=== PATIENT | female | born 1975 | race Caucasian/White ===

== ENCOUNTER 2019-02-19 10:11 | Inpatient (IN) ==
[2019-02-19] MEDS ORDERED: Isovue-370 500 ML BOTTLE IVP ONE (10:16)
[2019-02-19] MEDS ORDERED: Cefepime HCl 2,000 MG in Water for inj. (sterile) 20 ML IVP STA (10:18)
[2019-02-19] MEDS ORDERED: Ipratropium/Albuterol Neb 3 ML IH ONE (10:31)
[2019-02-19] MEDS ORDERED: methylPREDNISolone 125 MG/2 ML VIAL IVP ONE (10:31)
[2019-02-19 10:48] LABS: Hematocrit 31.2 % (35.3-44.9); Hemoglobin 10.5 g/dL (11.5-15.4); Mean Corpuscular HGB Conc 33.7 g/dL (31.6-35.5); Mean Platelet Volume 9.6 fL (9.4-12.4); Platelet Count 128 K/mcL (140-400); Red Blood Count 3.39 M/mcL (3.82-4.97); Red Cell Distribution Width 12.9 % (11.5-14.5); White Blood Count 4.9 K/mcL (4.3-11.1)
[2019-02-19 11:03] LABS: Prothrombin Time 11.4 Seconds (9.4-12.1)
[2019-02-19 11:06] LABS: Activated Partial Thrombo Time 31.4 Seconds (26.0-36.0)
[2019-02-19] MEDS: 0.9 % Sodium Chloride 1,000 ML IVC SCH ×2 (11:06→12:23)
[2019-02-19 11:07] LABS: Alanine Aminotransferase 23 Units/L (7-52); Albumin 4.2 g/dL (3.5-5.7); Albumin/Globulin Ratio 1.8 (1.1-2.2); Alkaline Phosphatase 124 Units/L (34-104); Aspartate Amino Transferase 21 Units/L (13-39); BUN/Creatinine Ratio 23 (6-26); Bilirubin,Direct 0.1 mg/dL (0.0-0.2); Bilirubin,Indirect 0.1 mg/dL (0.0-1.2); Bilirubin,Total 0.2 mg/dL (0.3-1.0); Blood Urea Nitrogen 17 mg/dL (6-20); Calcium 9.5 mg/dL (8.6-10.3); Carbon Dioxide 25 mEq/L (23-29); Chloride 105 mEq/L (98-107); Globulin 2.4 g/dL (2.4-3.5); Glucose 100 mg/dL (70-105); Lipase 15 Units/L (11-82); Magnesium 1.6 mg/dL (1.6-2.6); Osmolality,Calculated 288 (280-300); Phosphorous 4.2 mg/dL (2.7-4.5); Potassium 3.9 mEq/L (3.5-5.1); Sodium 138 mEq/L (136-145); Total Protein 6.6 g/dL (6.4-8.9); Troponin I 0.03 ng/mL (< 0.04); eGFR For African Americans > 60 (> 60); eGFR For Non-African Americans > 60 (> 60)
[2019-02-19] MEDS ORDERED: *HR* OxyCODONE/APAP 5/325 TABLET PO ONE ×2 (11:11→17:29)
[2019-02-19] MEDS ORDERED: Ondansetron 4 MG/2 ML VIAL IVP ONE (11:11)
[2019-02-19 11:35] LABS: Lymphocytes # 0.9 K/mcL (0.6-4.6); Monocytes # 0.2 K/mcL (0.0-1.3); Neutrophils # 3.8 K/mcL (1.6-8.9); Toxic Granulation Present (Not Present)
[2019-02-19 11:36] LABS: Dohle Bodies Present (Not Present); Platelet Estimate Slight Decrease (Normal)
[2019-02-19 11:39] LABS: Lactate Dehydrogenase 188 Units/L (140-271); Uric Acid 3.5 mg/dL (2.3-7.6)
[2019-02-19] MEDS ORDERED: *HR* HYDROmorphone (PF) 1 MG/ML SYRINGE IVP ONE (11:39)
[2019-02-19] MEDS ORDERED: Metoclopramide 10 MG/2 ML VIAL IVP ONE (12:26)
[2019-02-19 12:32] LABS: Bilirubin,Urine Negative (Negative); Blood,Urine Negative (Negative); Clarity,Urine Clear (Clear); Color,Urine Yellow (Yellow); Glucose,Urine (UA) Normal (Normal); Ketones,Urine Negative (Negative); Leukocyte Esterase,Urine Negative (Negative); Nitrite,Urine Negative (Negative); PH,Urine 6.5 pH Units (5.0-8.0); Protein,Urine Negative (Neg-Trace); Specific Gravity,Urine > 1.030 (1.010-1.025); Urobilinogen,Urine Normal (Normal)
[2019-02-19] MEDS ORDERED: Naloxone 0.4 MG/ML INJ IVP PRN (14:05)
[2019-02-19] MEDS ORDERED: Gadolinium Contrast Agent (WT Based) IV PRN (14:35)
[2019-02-19] MEDS: Ringers Solution, Lactated 1,000 ML IVC SCH (15:37)
[2019-02-19] MEDS: *HR* HYDROcodone/Acet 5/325 mg TABLET PO PRN ×2 (16:53→23:17)
[2019-02-19] MEDS: Cefepime HCl 1,000 MG in Water for inj. (sterile) 10 ML IVP SCH (16:54)
[2019-02-19 17:34] LABS: Troponin I 0.13 ng/mL (< 0.04)
[2019-02-19] MEDS: Ondansetron 4 MG/2 ML VIAL IVP PRN (21:24)
[2019-02-19] MEDS: hydrOXYzine pamoate 25 MG CAPSULE PO SCH (21:24)
[2019-02-20] MEDS ORDERED: Acetaminophen IV 500 MG/50 ML INFUS..BTL IVPB ONE ×2 (02:28→20:31)
[2019-02-20] MEDS: GuaiFENesin Liq 200 MG/10 ML UDC PO PRN ×2 (02:34→23:28)
[2019-02-20] MEDS: Ipratropium/Albuterol Neb 3 ML IH PRN ×2 (02:45→23:21)
[2019-02-20 03:47] LABS: Basophils % 0.4 %; Hematocrit 27.2 % (35.3-44.9); Hemoglobin 9.2 g/dL (11.5-15.4); Immature Granulocytes % 1.6 % (0-4); Lymphocytes # 0.6 K/mcL (0.6-4.6); Lymphocytes % 12.7 %; Mean Corpuscular HGB Conc 33.8 g/dL (31.6-35.5); Mean Corpuscular Hemoglobin 30.8 pg (28.0-33.3); Mean Platelet Volume 10.4 fL (9.4-12.4); Monocytes # 0.4 K/mcL (0.0-1.3); Monocytes % 7.3 %; Neutrophils # 3.9 K/mcL (1.6-8.9); Nucleated Red Blood Cells 0.4 /100 WBC (0); Platelet Count 107 K/mcL (140-400); Red Blood Count 2.99 M/mcL (3.82-4.97); Red Cell Distribution Width 12.9 % (11.5-14.5)
[2019-02-20 04:07] LABS: BUN/Creatinine Ratio 20 (6-26); Blood Urea Nitrogen 10 mg/dL (6-20); C-Reactive Protein < 5 mg/L (Less than 10); Calcium 8.8 mg/dL (8.6-10.3); Carbon Dioxide 24 mEq/L (23-29); Chloride 108 mEq/L (98-107); Glucose 97 mg/dL (70-105); Magnesium 1.6 mg/dL (1.6-2.6); Osmolality,Calculated 285 (280-300); Phosphorous 2.8 mg/dL (2.7-4.5); Potassium 3.9 mEq/L (3.5-5.1); Sodium 138 mEq/L (136-145); eGFR For African Americans > 60 (> 60); eGFR For Non-African Americans > 60 (> 60)
[2019-02-20] MEDS: Cefepime HCl 1,000 MG in Water for inj. (sterile) 10 ML IVP SCH (04:55)
[2019-02-20 05:04] LABS: Platelet Estimate Slight Decrease (Normal)
[2019-02-20] MEDS: Ringers Solution, Lactated 1,000 ML IVC SCH (06:19)
[2019-02-20] MEDS: predniSONE 20 MG TABLET PO SCH (07:20)
[2019-02-20] MEDS: *HR* HYDROcodone/Acet 5/325 mg TABLET PO PRN ×3 (07:20→19:34)
[2019-02-20] MEDS: Nicotine 14 MG PATCH.TD24 TD SCH (07:21)
[2019-02-20] MEDS ORDERED: 0.9 % Sodium Chloride 500 ML ONE ×2 (10:04→10:27)
[2019-02-20] MEDS ORDERED: *HR* Midazolam HCl 2 MG/2 ML VIAL IVP ONE (10:20)
[2019-02-20] MEDS ORDERED: *HR* FentaNYL (PF) 100 MCG/2 ML VIAL IVP ONE ×2 (10:20→10:39)
[2019-02-20] MEDS ORDERED: *HR* FentaNYL (PF) 100 MCG/2 ML VIAL ONE (10:27)
[2019-02-20] MEDS ORDERED: *HR* Midazolam HCl 2 MG/2 ML VIAL ONE (10:27)
[2019-02-20] MEDS: Ondansetron 4 MG/2 ML VIAL IVP PRN ×2 (11:30→20:57)
[2019-02-20] MEDS ORDERED: Magic Mouthwash 10 ML UD Cup PO PRN (11:54)
[2019-02-20] MEDS: *HR* Promethazine 25 MG/ML VIAL IVP PRN ×2 (14:11→23:29)
[2019-02-20 15:19] LABS: Adenovirus Not Detected (Not Detect); Bordetella Pertussis Not Detected (Not Detect); Chlamydophila pneumoniae Not Detected (Not Detect); Coronavirus 229E Not Detected (Not Detect); Coronavirus HKU1 Not Detected (Not Detect); Coronavirus NL63 Not Detected (Not Detect); Coronavirus OC43 Not Detected (Not Detect); Human Metapneumovirus Not Detected (Not Detect); Human Rhinovirus/Enterovirus DETECTED (Not Detect); Influenza A Subtype 2009 H1 Not Detected (Not Detect); Influenza A Untypeable Not Detected (Not Detect); Influenza B Not Detected (Not Detect); Mycoplasma pneumoniae Not Detected (Not Detect); Parainfluenza Virus 1 Not Detected (Not Detect); Parainfluenza Virus 2 Not Detected (Not Detect); Parainfluenza Virus 3 Not Detected (Not Detect); Parainfluenza Virus 4 Not Detected (Not Detect); Respiratory Syncytial Virus Not Detected (Not Detect)
[2019-02-20] MEDS: levoFLOXacin 750 MG/150 ML 750 MG/150 ML BAG IVPB SCH (16:07)
[2019-02-20] MEDS: hydrOXYzine pamoate 25 MG CAPSULE PO SCH (19:34)
[2019-02-21] MEDS: *HR* HYDROcodone/Acet 5/325 mg TABLET PO PRN (03:56)
[2019-02-21 04:39] LABS: Hematocrit 28.4 % (35.3-44.9); Hemoglobin 9.3 g/dL (11.5-15.4); Mean Corpuscular HGB Conc 32.7 g/dL (31.6-35.5); Mean Corpuscular Hemoglobin 30.8 pg (28.0-33.3); Mean Platelet Volume 10.8 fL (9.4-12.4); Platelet Count 127 K/mcL (140-400); Red Blood Count 3.02 M/mcL (3.82-4.97); Red Cell Distribution Width 12.9 % (11.5-14.5); White Blood Count 5.1 K/mcL (4.3-11.1)
[2019-02-21 04:56] LABS: BUN/Creatinine Ratio 20 (6-26); Blood Urea Nitrogen 11 mg/dL (6-20); Calcium 8.8 mg/dL (8.6-10.3); Carbon Dioxide 28 mEq/L (23-29); Chloride 107 mEq/L (98-107); Glucose 118 mg/dL (70-105); Magnesium 1.7 mg/dL (1.6-2.6); Osmolality,Calculated 292 (280-300); Phosphorous 3.2 mg/dL (2.7-4.5); Potassium 3.7 mEq/L (3.5-5.1); Sodium 141 mEq/L (136-145); eGFR For African Americans > 60 (> 60); eGFR For Non-African Americans > 60 (> 60)
[2019-02-21 06:05] LABS: Monocytes # 0.2 K/mcL (0.0-1.3); Neutrophils # 3.8 K/mcL (1.6-8.9)
[2019-02-21] MEDS: Ondansetron 4 MG/2 ML VIAL IVP PRN ×2 (09:02→17:16)
[2019-02-21] MEDS: predniSONE 20 MG TABLET PO SCH (09:15)
[2019-02-21] MEDS: Nicotine 14 MG PATCH.TD24 TD SCH (09:16)
[2019-02-21] MEDS: levoFLOXacin 750 MG/150 ML 750 MG/150 ML BAG IVPB SCH (09:17)
[2019-02-21] MEDS: *HR* OxyCODONE/APAP 5/325 TABLET PO PRN ×2 (10:00→23:00)
[2019-02-21] MEDS: *HR* Promethazine 25 MG/ML VIAL IVP PRN ×2 (11:36→23:00)
[2019-02-21] MEDS: *HR* Heparin 5,000 UNIT/ML VIAL SQ SCH ×2 (14:04→22:54)
[2019-02-21] MEDS ORDERED: Ketorolac 15 MG/ML VIAL IVP ONE (16:17)
[2019-02-21] MEDS: hydrOXYzine pamoate 25 MG CAPSULE PO SCH (22:55)
[2019-02-21] MEDS: Sennosides/Docusate Sodium TABLET PO SCH (22:56)
[2019-02-22] MEDS ORDERED: Acetaminophen IV 500 MG/50 ML INFUS..BTL IVPB ONE (01:59)
[2019-02-22] MEDS: *HR* Heparin 5,000 UNIT/ML VIAL SQ SCH ×3 (05:28→21:21)
[2019-02-22] MEDS: *HR* OxyCODONE/APAP 5/325 TABLET PO PRN ×2 (05:32→14:27)
[2019-02-22] MEDS ORDERED: Acetaminophen 325 MG TABLET PO ONE (09:50)
[2019-02-22] MEDS: Sennosides/Docusate Sodium TABLET PO SCH ×2 (09:52→21:21)
[2019-02-22] MEDS: predniSONE 20 MG TABLET PO SCH (09:53)
[2019-02-22] MEDS: *HR* Promethazine 25 MG/ML VIAL IVP PRN ×2 (09:54→21:22)
[2019-02-22] MEDS: Nicotine 14 MG PATCH.TD24 TD SCH (09:54)
[2019-02-22] MEDS: SUMAtriptan succinate 25 MG TABLET PO PRN ×3 (12:03→21:21)
[2019-02-22] MEDS: Ondansetron 4 MG/2 ML VIAL IVP PRN (14:35)
[2019-02-22] MEDS: hydrOXYzine pamoate 25 MG CAPSULE PO SCH (21:21)
[2019-02-23] MEDS: *HR* OxyCODONE/APAP 5/325 TABLET PO PRN (05:45)
[2019-02-23] MEDS: *HR* Heparin 5,000 UNIT/ML VIAL SQ SCH ×2 (05:46→12:40)
[2019-02-23 06:55] VITALS: BP 125/86
[2019-02-23] MEDS: Nicotine 14 MG PATCH.TD24 TD SCH (08:08)
[2019-02-23] MEDS: SUMAtriptan succinate 25 MG TABLET PO PRN ×2 (08:08→11:39)
[2019-02-23] MEDS: predniSONE 20 MG TABLET PO SCH (08:08)
[2019-02-23] MEDS: *HR* Promethazine 25 MG/ML VIAL IVP PRN (08:08)
[2019-02-23] MEDS: Sennosides/Docusate Sodium TABLET PO SCH (08:08)
[2019-02-23] MEDS ORDERED: Ondansetron ODT 4 MG TAB.RAPDIS SL PRN (09:20)
[2019-02-23] MEDS ORDERED: *HR* OxyCODONE/APAP 5/325 TABLET PO PRN (11:42)
[2019-02-23] MEDS ORDERED: Aminoglycoside Consult 1 EACH MC ONE (15:19)
== END 2019-02-23 15:20 | disposition home or self-care (01) | DRG 721 ==
LOC: 2NENU 10:11 → EMEROOARM 10:11 → 2NENU 14:09 → SUATTDRO 02-20 10:02
PROVIDERS: ADMIT Internal Medicine; ATTEND Internal Medicine

== ENCOUNTER 2019-03-07 12:29 | Inpatient (IN) ==
[2019-03-07] MEDS ORDERED: 0.9 % Sodium Chloride 1,000 ML IVC ONE (12:35)
[2019-03-07] MEDS ORDERED: *HR* HYDROmorphone (PF) 1 MG/ML SYRINGE IVP ONE (12:45)
[2019-03-07] MEDS ORDERED: Isovue-370 500 ML BOTTLE IVP ONE (12:58)
[2019-03-07 13:02] LABS: Basophils % 0.2 %; Red Cell Distribution Width 16.6 % (11.5-14.5)
[2019-03-07 13:04] LABS: Basophils # 0.1 K/mcL (0.0-0.2); Hemoglobin 11.9 g/dL (11.5-15.4); Immature Granulocytes % 8.5 % (0-4); Lymphocytes % 1.7 %; Mean Corpuscular HGB Conc 33.1 g/dL (31.6-35.5); Mean Corpuscular Hemoglobin 31.6 pg (28.0-33.3); Mean Corpuscular Volume 95.7 fL (83.0-100.0); Mean Platelet Volume 9.6 fL (9.4-12.4); Monocytes # 0.4 K/mcL (0.0-1.3); Monocytes % 0.8 %; Neutrophils # 44.5 K/mcL (1.6-8.9); Platelet Count 190 K/mcL (140-400); Red Blood Count 3.76 M/mcL (3.82-4.97); Segmented Neutrophils % 88.8 %
[2019-03-07 13:11] LABS: Lymphocytes # 0.9 K/mcL (0.6-4.6)
[2019-03-07 13:12] LABS: Prothrombin Time 11.7 Seconds (9.4-12.1)
[2019-03-07 13:14] LABS: White Blood Count 50.1 K/mcL (4.3-11.1)
[2019-03-07 13:15] LABS: Activated Partial Thrombo Time 29.7 Seconds (26.0-36.0)
[2019-03-07 13:22] LABS: Alanine Aminotransferase 24 Units/L (7-52); Albumin 4.5 g/dL (3.5-5.7); Albumin/Globulin Ratio 1.7 (1.1-2.2); Alkaline Phosphatase 92 Units/L (34-104); Aspartate Amino Transferase 14 Units/L (13-39); BUN/Creatinine Ratio 22 (6-26); Bilirubin,Direct 0.1 mg/dL (0.0-0.2); Bilirubin,Indirect 0.4 mg/dL (0.0-1.2); Bilirubin,Total 0.5 mg/dL (0.3-1.0); Blood Urea Nitrogen 11 mg/dL (6-20); Calcium 9.5 mg/dL (8.6-10.3); Carbon Dioxide 22 mEq/L (23-29); Chloride 107 mEq/L (98-107); Globulin 2.6 g/dL (2.4-3.5); Glucose 87 mg/dL (70-105); Magnesium 1.9 mg/dL (1.6-2.6); Osmolality,Calculated 287 (280-300); Phosphorous 3.6 mg/dL (2.7-4.5); Sodium 139 mEq/L (136-145); Total Protein 7.1 g/dL (6.4-8.9); Troponin I < 0.03 ng/mL (< 0.04); eGFR For African Americans > 60 (> 60); eGFR For Non-African Americans > 60 (> 60)
[2019-03-07] MEDS ORDERED: 0.9 % Sodium Chloride 1,000 ML IVC STA (13:23)
[2019-03-07 13:32] LABS: Bilirubin,Urine Negative (Negative); Blood,Urine Negative (Negative); Color,Urine Yellow (Yellow); Glucose,Urine (UA) Normal (Normal); Ketones,Urine 80 mg/dL (Negative); Leukocyte Esterase,Urine Negative (Negative); Nitrite,Urine Negative (Negative); Protein,Urine 100 mg/dL (Neg-Trace); Specific Gravity,Urine > 1.030 (1.010-1.025); Urobilinogen,Urine Normal (Normal)
[2019-03-07 13:34] LABS: Bacteria,Urine None Seen per hpf (None-Few); Hyaline Casts,Urine Few per lpf (None-Few); Squamous Epithelial Cell,Urine Many per lpf (None-Few); WBC,Urine 0-3 per hpf (0-3)
[2019-03-07] MEDS ORDERED: Ondansetron 4 MG/2 ML VIAL IVP STA (13:34)
[2019-03-07 13:38] LABS: Clarity,Urine Clear (Clear)
[2019-03-07 13:43] LABS: Platelet Estimate Normal (Normal); Reactive Lymphocytes Present (Not Present); Toxic Granulation Present (Not Present); Toxic Vacuolation Present (Not Present)
[2019-03-07] MEDS ORDERED: 0.9 % Sodium Chloride 250 ML ONE (13:46)
[2019-03-07] MEDS ORDERED: Cefepime HCl 2,000 MG in Water for inj. (sterile) 20 ML IVP ONE (14:45)
[2019-03-07] MEDS ORDERED: *HR* HYDROcodone/Acet 5/325 mg TABLET PO PRN (16:23)
[2019-03-07] MEDS ORDERED: Ondansetron 4 MG/2 ML VIAL IVP PRN (16:23)
[2019-03-07] MEDS ORDERED: Naloxone 0.4 MG/ML INJ IVP PRN (16:23)
[2019-03-07] MEDS ORDERED: Acetaminophen 325 MG TABLET PO PRN (16:23)
[2019-03-07] MEDS ORDERED: *HR* FentaNYL (PF) 100 MCG/2 ML VIAL IVP ONE (16:24)
[2019-03-07] MEDS: *HR* OxyCODONE Immed Rel 5 MG TABLET PO PRN (20:03)
[2019-03-07] MEDS: *HR* Heparin 5,000 UNIT/ML VIAL SQ SCH (22:20)
[2019-03-07] MEDS: Nicotine 21 MG PATCH.TD24 TD SCH (22:20)
[2019-03-08] MEDS: *HR* Promethazine 25 MG/ML VIAL IVP PRN ×4 (00:26→19:58)
[2019-03-08] MEDS: *HR* Heparin 5,000 UNIT/ML VIAL SQ SCH ×3 (02:25→16:53)
[2019-03-08 05:02] LABS: Mean Corpuscular HGB Conc 33.3 g/dL (31.6-35.5); Mean Platelet Volume 9.8 fL (9.4-12.4)
[2019-03-08 05:04] LABS: Hematocrit 31.2 % (35.3-44.9); Hemoglobin 10.4 g/dL (11.5-15.4); Mean Corpuscular Hemoglobin 32.3 pg (28.0-33.3); Mean Corpuscular Volume 96.9 fL (83.0-100.0); Platelet Count 163 K/mcL (140-400); Red Blood Count 3.22 M/mcL (3.82-4.97); Red Cell Distribution Width 16.3 % (11.5-14.5)
[2019-03-08 05:08] LABS: White Blood Count 33.2 K/mcL (4.3-11.1)
[2019-03-08 05:09] LABS: INR 1.1
[2019-03-08 05:20] LABS: BUN/Creatinine Ratio 18 (6-26); Blood Urea Nitrogen 8 mg/dL (6-20); Calcium 8.8 mg/dL (8.6-10.3); Carbon Dioxide 25 mEq/L (23-29); Chloride 106 mEq/L (98-107); Glucose 83 mg/dL (70-105); Magnesium 1.8 mg/dL (1.6-2.6); Osmolality,Calculated 285 (280-300); Potassium 3.6 mEq/L (3.5-5.1); Sodium 139 mEq/L (136-145); eGFR For African Americans > 60 (> 60); eGFR For Non-African Americans > 60 (> 60)
[2019-03-08] MEDS ORDERED: Cefepime HCl 2,000 MG in Water for inj. (sterile) 20 ML IVP SCH (06:00)
[2019-03-08 06:36] LABS: Monocytes # 0.3 K/mcL (0.0-1.3); Neutrophils # 31.9 K/mcL (1.6-8.9); Platelet Estimate Normal (Normal); Toxic Vacuolation Present (Not Present)
[2019-03-08] MEDS: Nicotine 21 MG PATCH.TD24 TD SCH (09:30)
[2019-03-08] MEDS: *HR* OxyCODONE Immed Rel 5 MG TABLET PO PRN ×3 (09:35→23:06)
[2019-03-08] MEDS ORDERED: *HR* OxyCODONE/APAP 5/325 TABLET PO PRN (10:26)
[2019-03-08] MEDS ORDERED: Gadolinium Contrast Agent (WT Based) IV PRN (13:17)
[2019-03-08] MEDS ORDERED: Aminoglycoside Consult 1 EACH MC ONE (15:37)
[2019-03-08 21:14] LABS: Adenovirus Not Detected (Not Detect); Bordetella Pertussis Not Detected (Not Detect); Chlamydophila pneumoniae Not Detected (Not Detect); Coronavirus 229E Not Detected (Not Detect); Coronavirus HKU1 Not Detected (Not Detect); Coronavirus NL63 Not Detected (Not Detect); Coronavirus OC43 Not Detected (Not Detect); Human Metapneumovirus Not Detected (Not Detect); Human Rhinovirus/Enterovirus Not Detected (Not Detect); Influenza A Subtype 2009 H1 Not Detected (Not Detect); Influenza A Untypeable Not Detected (Not Detect); Influenza B Not Detected (Not Detect); Mycoplasma pneumoniae Not Detected (Not Detect); Parainfluenza Virus 1 Not Detected (Not Detect); Parainfluenza Virus 2 Not Detected (Not Detect); Parainfluenza Virus 3 Not Detected (Not Detect); Parainfluenza Virus 4 Not Detected (Not Detect); Respiratory Syncytial Virus Not Detected (Not Detect)
[2019-03-09] MEDS: *HR* Promethazine 25 MG/ML VIAL IVP PRN ×4 (00:33→14:34)
[2019-03-09 04:56] LABS: Hematocrit 31.5 % (35.3-44.9); Hemoglobin 10.3 g/dL (11.5-15.4); Mean Corpuscular HGB Conc 32.7 g/dL (31.6-35.5); Mean Corpuscular Hemoglobin 31.4 pg (28.0-33.3); Mean Platelet Volume 9.6 fL (9.4-12.4); Platelet Count 158 K/mcL (140-400); Red Blood Count 3.28 M/mcL (3.82-4.97); Red Cell Distribution Width 15.9 % (11.5-14.5); White Blood Count 21.9 K/mcL (4.3-11.1)
[2019-03-09] MEDS: *HR* OxyCODONE Immed Rel 5 MG TABLET PO PRN ×2 (05:07→10:01)
[2019-03-09] MEDS: *HR* Heparin 5,000 UNIT/ML VIAL SQ SCH (05:20)
[2019-03-09 05:31] LABS: Lymphocytes # 0.9 K/mcL (0.6-4.6)
[2019-03-09 05:32] LABS: Platelet Estimate Normal (Normal)
[2019-03-09 08:34] VITALS: BP 102/75
[2019-03-09] MEDS: Nicotine 21 MG PATCH.TD24 TD SCH (10:01)
== END 2019-03-09 15:38 | disposition home or self-care (01) | DRG 720 ==
LOC: 2NENU 12:29 → EMEROOARM 12:29 → SUATTDRO 17:32 → OBSVTOIN 17:32 → 2NENU 18:21
PROVIDERS: ADMIT Internal Medicine; ATTEND Internal Medicine

== ENCOUNTER 2019-03-21 06:54 | Inpatient (IN) ==
[2019-03-21] MEDS ORDERED: Isovue-370 500 ML BOTTLE IVP ONE (07:23)
[2019-03-21] MEDS ORDERED: 0.9 % Sodium Chloride 1,000 ML IVC ONE (07:24)
[2019-03-21] MEDS ORDERED: Metoclopramide 10 MG/2 ML VIAL IVP STA (07:26)
[2019-03-21] MEDS ORDERED: Cefepime HCl 2,000 MG in Water for inj. (sterile) 20 ML IVP STA (07:41)
[2019-03-21] MEDS ORDERED: MetroNIDAZOLE 500 MG/100 ML 500 MG/100 ML BAG IVPB ONE (07:41)
[2019-03-21 08:02] LABS: INR 1.1; Prothrombin Time 12.3 Seconds (9.4-12.1)
[2019-03-21 08:03] LABS: Hematocrit 25.4 % (35.3-44.9); Hemoglobin 8.2 g/dL (11.5-15.4); Mean Corpuscular HGB Conc 32.3 g/dL (31.6-35.5); Mean Corpuscular Hemoglobin 31.8 pg (28.0-33.3); Mean Corpuscular Volume 98.4 fL (83.0-100.0); Mean Platelet Volume 9.5 fL (9.4-12.4); Platelet Count 183 K/mcL (140-400); Red Blood Count 2.58 M/mcL (3.82-4.97); Red Cell Distribution Width 17.7 % (11.5-14.5)
[2019-03-21 08:04] LABS: Bilirubin,Urine Negative (Negative); Blood,Urine Negative (Negative); Clarity,Urine Clear (Clear); Color,Urine Yellow (Yellow); Glucose,Urine (UA) Normal (Normal); Ketones,Urine Negative (Negative); Leukocyte Esterase,Urine Negative (Negative); Nitrite,Urine Negative (Negative); Protein,Urine Negative (Neg-Trace); Specific Gravity,Urine 1.012 (1.010-1.025); Urobilinogen,Urine Normal (Normal)
[2019-03-21 08:12] LABS: White Blood Count 50.3 K/mcL (4.3-11.1)
[2019-03-21 08:23] LABS: Alanine Aminotransferase 10 Units/L (7-52); Albumin 3.9 g/dL (3.5-5.7); Alkaline Phosphatase 117 Units/L (34-104); Aspartate Amino Transferase 11 Units/L (13-39); BUN/Creatinine Ratio 12 (6-26); Bilirubin,Indirect 0.2 mg/dL (0.0-1.0); Bilirubin,Total 0.2 mg/dL (0.3-1.0); Blood Urea Nitrogen 6 mg/dL (6-20); Calcium 8.6 mg/dL (8.6-10.3); Carbon Dioxide 30 mEq/L (23-29); Chloride 103 mEq/L (98-107); Glucose 108 mg/dL (70-105); Magnesium 1.5 mg/dL (1.6-2.6); Osmolality,Calculated 290 (280-300); Phosphorous 4.6 mg/dL (2.7-4.5); Potassium 3.4 mEq/L (3.5-5.1); Sodium 141 mEq/L (136-145); Total Protein 5.9 g/dL (6.4-8.9); Troponin I 0.03 ng/mL (< 0.04); eGFR For African Americans > 60 (> 60); eGFR For Non-African Americans > 60 (> 60)
[2019-03-21 08:42] LABS: Neutrophils # 47.8 K/mcL (1.6-8.9)
[2019-03-21 08:46] LABS: Dohle Bodies Present (Not Present); Platelet Estimate Normal (Normal)
[2019-03-21] MEDS ORDERED: Valproic Acid INJ 250 MG in 0.9 % Sodium Chloride 100 ML IVPB STA (08:54)
[2019-03-21] MEDS ORDERED: Naloxone 0.4 MG/ML INJ IVP PRN (10:46)
[2019-03-21] MEDS: *HR* Promethazine 25 MG/ML VIAL IVP SCH ×3 (12:10→19:40)
[2019-03-21] MEDS: 0.9 % Sodium Chloride 1,000 ML IVC SCH (12:10)
[2019-03-21] MEDS: Cefepime HCl 2,000 MG in Water for inj. (sterile) 20 ML IVP SCH (16:14)
[2019-03-21] MEDS: Nystatin SUSP 5 ML UD.LIQ PO SCH ×2 (16:14→19:40)
[2019-03-21] MEDS: MetroNIDAZOLE 500 MG/100 ML 500 MG/100 ML BAG IVPB SCH (16:15)
[2019-03-21] MEDS: Pantoprazole 40 MG VIAL IVP SCH (16:24)
[2019-03-21] MEDS: Nicotine 14 MG PATCH.TD24 TD SCH (17:44)
[2019-03-22] MEDS: MetroNIDAZOLE 500 MG/100 ML 500 MG/100 ML BAG IVPB SCH ×3 (01:11→16:55)
[2019-03-22] MEDS: Cefepime HCl 2,000 MG in Water for inj. (sterile) 20 ML IVP SCH ×3 (01:12→16:55)
[2019-03-22] MEDS: *HR* Promethazine 25 MG/ML VIAL IVP SCH ×6 (01:12→20:34)
[2019-03-22] MEDS: 0.9 % Sodium Chloride 1,000 ML IVC SCH (01:40)
[2019-03-22] MEDS: *HR* Enoxaparin 40 MG/0.4 ML SYRINGE SQ SCH (06:14)
[2019-03-22 08:16] LABS: Hemoglobin 7.8 g/dL (11.5-15.4); Mean Corpuscular HGB Conc 33.9 g/dL (31.6-35.5); Mean Corpuscular Hemoglobin 32.5 pg (28.0-33.3); Mean Corpuscular Volume 95.8 fL (83.0-100.0); Mean Platelet Volume 9.3 fL (9.4-12.4); Platelet Count 133 K/mcL (140-400); Red Cell Distribution Width 17.6 % (11.5-14.5)
[2019-03-22 08:22] LABS: White Blood Count 23.3 K/mcL (4.3-11.1)
[2019-03-22 08:51] LABS: Neutrophils # 23.3 K/mcL (1.6-8.9); Platelet Estimate Slight Decrease (Normal)
[2019-03-22] MEDS: Nystatin SUSP 5 ML UD.LIQ PO SCH ×4 (09:00→20:34)
[2019-03-22] MEDS: Pantoprazole 40 MG VIAL IVP SCH (09:01)
[2019-03-22] MEDS: Nicotine 14 MG PATCH.TD24 TD SCH (09:01)
[2019-03-22 09:22] LABS: BUN/Creatinine Ratio 14 (6-26); Blood Urea Nitrogen 6 mg/dL (6-20); Carbon Dioxide 28 mEq/L (23-29); Chloride 109 mEq/L (98-107); Glucose 90 mg/dL (70-105); Magnesium 1.8 mg/dL (1.6-2.6); Osmolality,Calculated 289 (280-300); Potassium 3.5 mEq/L (3.5-5.1); Sodium 141 mEq/L (136-145); eGFR For African Americans > 60 (> 60); eGFR For Non-African Americans > 60 (> 60)
[2019-03-22] MEDS: Divalproex (24 HR) 250 MG TABLET PO SCH (20:34)
[2019-03-22] MEDS: Sennosides/Docusate Sodium TABLET PO SCH (20:34)
[2019-03-23] MEDS: *HR* Promethazine 25 MG/ML VIAL IVP SCH ×6 (00:32→19:52)
[2019-03-23] MEDS: Cefepime HCl 2,000 MG in Water for inj. (sterile) 20 ML IVP SCH ×3 (00:32→16:26)
[2019-03-23] MEDS: MetroNIDAZOLE 500 MG/100 ML 500 MG/100 ML BAG IVPB SCH ×3 (00:33→16:27)
[2019-03-23 03:50] LABS: Hematocrit 22.3 % (35.3-44.9); Hemoglobin 7.6 g/dL (11.5-15.4); Mean Corpuscular HGB Conc 34.1 g/dL (31.6-35.5); Mean Corpuscular Hemoglobin 32.2 pg (28.0-33.3); Mean Corpuscular Volume 94.5 fL (83.0-100.0); Mean Platelet Volume 9.6 fL (9.4-12.4); Platelet Count 115 K/mcL (140-400); Red Blood Count 2.36 M/mcL (3.82-4.97); Red Cell Distribution Width 16.9 % (11.5-14.5)
[2019-03-23 03:51] LABS: White Blood Count 7.5 K/mcL (4.3-11.1)
[2019-03-23 04:09] LABS: Lymphocytes # 0.3 K/mcL (0.6-4.6); Neutrophils # 7.2 K/mcL (1.6-8.9)
[2019-03-23 04:10] LABS: Dohle Bodies Present (Not Present); Platelet Estimate Slight Decrease (Normal)
[2019-03-23 04:15] LABS: BUN/Creatinine Ratio 15 (6-26); Blood Urea Nitrogen 6 mg/dL (6-20); Calcium 8.2 mg/dL (8.6-10.3); Carbon Dioxide 25 mEq/L (23-29); Chloride 107 mEq/L (98-107); Glucose 82 mg/dL (70-105); Osmolality,Calculated 283 (280-300); Potassium 3.5 mEq/L (3.5-5.1); Sodium 138 mEq/L (136-145); eGFR For African Americans > 60 (> 60); eGFR For Non-African Americans > 60 (> 60)
[2019-03-23] MEDS: *HR* Enoxaparin 40 MG/0.4 ML SYRINGE SQ SCH (05:10)
[2019-03-23] MEDS: Nicotine 14 MG PATCH.TD24 TD SCH (08:37)
[2019-03-23] MEDS: Nystatin SUSP 5 ML UD.LIQ PO SCH ×4 (08:37→19:52)
[2019-03-23] MEDS: Sennosides/Docusate Sodium TABLET PO SCH ×2 (08:38→19:52)
[2019-03-23] MEDS: Pantoprazole 40 MG VIAL IVP SCH (08:40)
[2019-03-23] MEDS: *HR* OxyCODONE ER (12 HR) 10 MG TABLET PO SCH (18:13)
[2019-03-23] MEDS: Divalproex (24 HR) 250 MG TABLET PO SCH (19:52)
[2019-03-24] MEDS: Cefepime HCl 2,000 MG in Water for inj. (sterile) 20 ML IVP SCH ×2 (00:25→08:07)
[2019-03-24] MEDS: *HR* Promethazine 25 MG/ML VIAL IVP SCH ×4 (00:26→11:41)
[2019-03-24] MEDS: MetroNIDAZOLE 500 MG/100 ML 500 MG/100 ML BAG IVPB SCH ×3 (00:27→16:09)
[2019-03-24] MEDS ORDERED: Metoclopramide 10 MG/2 ML VIAL IVP ONE (02:42)
[2019-03-24 05:01] LABS: Basophils % 0.9 %; Eosinophils % 0.9 %; Hematocrit 21.6 % (35.3-44.9); Immature Granulocytes % 8.1 % (0-4); Lymphocytes # 0.3 K/mcL (0.6-4.6); Lymphocytes % 22.5 %; Mean Corpuscular HGB Conc 32.4 g/dL (31.6-35.5); Mean Corpuscular Hemoglobin 31.1 pg (28.0-33.3); Mean Platelet Volume 9.2 fL (9.4-12.4); Monocytes % 3.6 %; Neutrophils # 0.7 K/mcL (1.6-8.9); Red Blood Count 2.25 M/mcL (3.82-4.97); Red Cell Distribution Width 16.3 % (11.5-14.5); White Blood Count 1.1 K/mcL (4.3-11.1)
[2019-03-24 05:17] LABS: BUN/Creatinine Ratio 18 (6-26); Blood Urea Nitrogen 8 mg/dL (6-20); Calcium 8.5 mg/dL (8.6-10.3); Carbon Dioxide 27 mEq/L (23-29); Chloride 103 mEq/L (98-107); Glucose 95 mg/dL (70-105); Osmolality,Calculated 284 (280-300); Potassium 3.4 mEq/L (3.5-5.1); Sodium 138 mEq/L (136-145); eGFR For African Americans > 60 (> 60); eGFR For Non-African Americans > 60 (> 60)
[2019-03-24 05:45] LABS: Platelet Count 97 K/mcL (140-400)
[2019-03-24 05:53] LABS: Platelet Estimate Decreased (Normal)
[2019-03-24] MEDS: *HR* OxyCODONE ER (12 HR) 10 MG TABLET PO SCH ×2 (05:57→17:22)
[2019-03-24] MEDS: *HR* Enoxaparin 40 MG/0.4 ML SYRINGE SQ SCH (06:00)
[2019-03-24] MEDS: Sennosides/Docusate Sodium TABLET PO SCH ×2 (08:06→21:02)
[2019-03-24] MEDS: Nicotine 14 MG PATCH.TD24 TD SCH (08:08)
[2019-03-24] MEDS: Pantoprazole 40 MG VIAL IVP SCH (08:09)
[2019-03-24] MEDS: Nystatin SUSP 5 ML UD.LIQ PO SCH ×4 (08:09→22:12)
[2019-03-24] MEDS ORDERED: 0.9 % Sodium Chloride 250 ML IVC SCH (10:45)
[2019-03-24] MEDS ORDERED: *HR* Promethazine 25 MG/ML VIAL IVP PRN (13:54)
[2019-03-24 14:28] LABS: Adenovirus Not Detected (Not Detect); Bordetella Pertussis Not Detected (Not Detect); Chlamydophila pneumoniae Not Detected (Not Detect); Coronavirus 229E Not Detected (Not Detect); Coronavirus HKU1 Not Detected (Not Detect); Coronavirus NL63 Not Detected (Not Detect); Coronavirus OC43 Not Detected (Not Detect); Human Metapneumovirus Not Detected (Not Detect); Human Rhinovirus/Enterovirus Not Detected (Not Detect); Influenza A Subtype 2009 H1 Not Detected (Not Detect); Influenza A Untypeable Not Detected (Not Detect); Influenza B Not Detected (Not Detect); Mycoplasma pneumoniae Not Detected (Not Detect); Parainfluenza Virus 1 Not Detected (Not Detect); Parainfluenza Virus 2 Not Detected (Not Detect); Parainfluenza Virus 3 Not Detected (Not Detect); Parainfluenza Virus 4 Not Detected (Not Detect); Respiratory Syncytial Virus Not Detected (Not Detect)
[2019-03-24] MEDS: Promethazine 25 MG in 0.9 % Sodium Chloride 50 ML IVPB PRN ×2 (16:03→22:41)
[2019-03-24] MEDS: Cefepime HCl 2,000 MG in 0.9 % Sodium Chloride Mini Bag 100 ML IVPB SCH (16:09)
[2019-03-24] MEDS ORDERED: Aminoglycoside Consult 1 EACH MC ONE (16:50)
[2019-03-24] MEDS: Divalproex (24 HR) 250 MG TABLET PO SCH (21:02)
[2019-03-25] MEDS: MetroNIDAZOLE 500 MG/100 ML 500 MG/100 ML BAG IVPB SCH ×2 (00:08→07:30)
[2019-03-25] MEDS: Cefepime HCl 2,000 MG in 0.9 % Sodium Chloride Mini Bag 100 ML IVPB SCH ×2 (00:08→07:30)
[2019-03-25 04:52] LABS: Hematocrit 24.2 % (35.3-44.9); Red Cell Distribution Width 16.8 % (11.5-14.5)
[2019-03-25 04:54] LABS: Basophils % 1.2 %; Eosinophils % 1.2 %; Hemoglobin 8.4 g/dL (11.5-15.4); Immature Granulocytes % 1.2 % (0-4); Lymphocytes % 27.9 %; Mean Corpuscular HGB Conc 34.7 g/dL (31.6-35.5); Mean Corpuscular Hemoglobin 30.8 pg (28.0-33.3); Mean Corpuscular Volume 88.6 fL (83.0-100.0); Mean Platelet Volume 9.1 fL (9.4-12.4); Monocytes # 0.1 K/mcL (0.0-1.3); Monocytes % 5.8 %; Red Blood Count 2.73 M/mcL (3.82-4.97); Segmented Neutrophils % 62.7 %
[2019-03-25 05:16] LABS: BUN/Creatinine Ratio 19 (6-26); Blood Urea Nitrogen 8 mg/dL (6-20); Calcium 8.8 mg/dL (8.6-10.3); Carbon Dioxide 28 mEq/L (23-29); Chloride 105 mEq/L (98-107); Glucose 81 mg/dL (70-105); Osmolality,Calculated 283 (280-300); Potassium 3.9 mEq/L (3.5-5.1); Sodium 138 mEq/L (136-145); eGFR For African Americans > 60 (> 60); eGFR For Non-African Americans > 60 (> 60)
[2019-03-25 05:25] LABS: Lymphocytes # 0.3 K/mcL (0.6-4.6); Neutrophils # 0.6 K/mcL (1.6-8.9); Platelet Count 73 K/mcL (140-400); White Blood Count 0.9 K/mcL (4.3-11.1)
[2019-03-25] MEDS: *HR* OxyCODONE ER (12 HR) 10 MG TABLET PO SCH ×2 (06:08→17:28)
[2019-03-25] MEDS: Promethazine 25 MG in 0.9 % Sodium Chloride 50 ML IVPB PRN ×4 (06:41→23:46)
[2019-03-25] MEDS: Sennosides/Docusate Sodium TABLET PO SCH ×2 (07:29→20:09)
[2019-03-25] MEDS: Nystatin SUSP 5 ML UD.LIQ PO SCH ×4 (07:30→20:09)
[2019-03-25] MEDS: Pantoprazole 40 MG VIAL IVP SCH (07:30)
[2019-03-25] MEDS: Nicotine 14 MG PATCH.TD24 TD SCH (07:31)
[2019-03-25] MEDS: Divalproex (24 HR) 250 MG TABLET PO SCH (20:09)
[2019-03-26 02:40] LABS: Red Cell Distribution Width 16.3 % (11.5-14.5)
[2019-03-26 02:42] LABS: Basophils % 0.9 %; Eosinophils % 0.9 %; Hematocrit 26.2 % (35.3-44.9); Hemoglobin 8.7 g/dL (11.5-15.4); Immature Granulocytes % 0.9 % (0-4); Lymphocytes # 0.4 K/mcL (0.6-4.6); Lymphocytes % 32.1 %; Mean Corpuscular HGB Conc 33.2 g/dL (31.6-35.5); Mean Corpuscular Hemoglobin 30.6 pg (28.0-33.3); Mean Corpuscular Volume 92.3 fL (83.0-100.0); Mean Platelet Volume 10.2 fL (9.4-12.4); Monocytes # 0.1 K/mcL (0.0-1.3); Monocytes % 10.1 %; Neutrophils # 0.6 K/mcL (1.6-8.9); Red Blood Count 2.84 M/mcL (3.82-4.97); Segmented Neutrophils % 55.1 %
[2019-03-26 02:48] LABS: Platelet Count 69 K/mcL (140-400); White Blood Count 1.1 K/mcL (4.3-11.1)
[2019-03-26 03:16] LABS: Platelet Estimate Decreased (Normal)
[2019-03-26] MEDS: *HR* OxyCODONE ER (12 HR) 10 MG TABLET PO SCH (05:58)
[2019-03-26] MEDS: Pantoprazole 40 MG VIAL IVP SCH (07:30)
[2019-03-26] MEDS: Promethazine 25 MG in 0.9 % Sodium Chloride 50 ML IVPB PRN ×2 (07:30→15:08)
[2019-03-26] MEDS: Sennosides/Docusate Sodium TABLET PO SCH (07:30)
[2019-03-26] MEDS: Nicotine 14 MG PATCH.TD24 TD SCH (07:30)
[2019-03-26] MEDS: Nystatin SUSP 5 ML UD.LIQ PO SCH ×3 (07:30→14:06)
[2019-03-26 11:06] VITALS: BP 106/75
== END 2019-03-26 16:51 | disposition home or self-care (01) | DRG 660 ==
LOC: 3ANU 06:54 → EMEROOARM 06:54 → SUATTDRO 10:17 → 3ANU 11:15 → SUATTDRO 03-24 09:24
PROVIDERS: ADMIT Internal Medicine; ATTEND Family Medicine

== ENCOUNTER 2021-09-02 09:00 | Inpatient (IN) ==
[2021-09-02] MEDS ORDERED: Haloperidol Oral Conc 10 MG/5 ML UDC PO PRN ×2 (10:33→15:26)
[2021-09-02] MEDS ORDERED: *HR* LORazepam Oral Conc 2 MG/ML PO PRN (10:33)
[2021-09-02] MEDS ORDERED: Atropine Sulfate 1% 40 DROP/2 ML BOTTLE SL PRN (10:33)
[2021-09-02] MEDS ORDERED: Baclofen 10 MG TABLET PO PRN (14:32)
[2021-09-02] MEDS ORDERED: *HR* FentaNYL PATCH 100 MCG PATCH TD SCH (14:45)
[2021-09-02] MEDS: Haloperidol Oral Conc 10 MG/5 ML UDC PO SCH ×2 (16:10→21:33)
[2021-09-02] MEDS: *HR* OxyCODONE Immed Rel 5 MG TABLET PO PRN ×2 (16:20→21:34)
[2021-09-02] MEDS: Magic Mouthwash 10 ML UD Cup PO SCH (18:09)
[2021-09-02] MEDS: Nicotine 14 MG PATCH.TD24 TD SCH (18:16)
[2021-09-02] MEDS: FENTANYL TD SCH (18:32)
[2021-09-02] MEDS: QUEtiapine Fumarate 25 MG TABLET PO SCH (21:33)
[2021-09-02] MEDS: dexAMETHasone 4 MG TABLET PO SCH (21:33)
[2021-09-02] MEDS: Sennosides/Docusate Sodium TABLET PO SCH (21:33)
[2021-09-02] MEDS: Divalproex Sodium 125 MG Sprinkle Capsule (DR) PO SCH (21:34)
[2021-09-03] MEDS: Magic Mouthwash 10 ML UD Cup PO SCH ×3 (04:39→15:28)
[2021-09-03] MEDS: Sennosides/Docusate Sodium TABLET PO SCH ×2 (09:17→20:30)
[2021-09-03] MEDS: Divalproex Sodium 125 MG Sprinkle Capsule (DR) PO SCH ×2 (09:17→20:28)
[2021-09-03] MEDS: QUEtiapine Fumarate 25 MG TABLET PO SCH ×2 (09:17→20:29)
[2021-09-03] MEDS: Haloperidol Oral Conc 10 MG/5 ML UDC PO SCH ×3 (09:17→20:30)
[2021-09-03] MEDS: Nicotine 14 MG PATCH.TD24 TD SCH (09:18)
[2021-09-03] MEDS: dexAMETHasone 4 MG TABLET PO SCH ×2 (09:22→20:30)
[2021-09-03] MEDS: *HR* OxyCODONE Immed Rel 5 MG TABLET PO PRN ×4 (09:29→23:50)
[2021-09-04] MEDS: Magic Mouthwash 10 ML UD Cup PO SCH ×3 (08:45→14:37)
[2021-09-04] MEDS: Divalproex Sodium 125 MG Sprinkle Capsule (DR) PO SCH ×2 (08:45→20:19)
[2021-09-04] MEDS: Nicotine 14 MG PATCH.TD24 TD SCH (08:45)
[2021-09-04] MEDS: Haloperidol Oral Conc 10 MG/5 ML UDC PO SCH ×3 (08:45→21:42)
[2021-09-04] MEDS: Sennosides/Docusate Sodium TABLET PO SCH ×2 (08:46→20:19)
[2021-09-04] MEDS: dexAMETHasone 4 MG TABLET PO SCH ×3 (08:46→20:19)
[2021-09-04] MEDS: QUEtiapine Fumarate 25 MG TABLET PO SCH ×2 (08:46→20:19)
[2021-09-04] MEDS: *HR* OxyCODONE Immed Rel 5 MG TABLET PO PRN ×3 (11:16→20:18)
[2021-09-05] MEDS: *HR* OxyCODONE Immed Rel 5 MG TABLET PO PRN ×6 (00:25→22:38)
[2021-09-05] MEDS: dexAMETHasone 4 MG TABLET PO SCH ×2 (07:28→20:48)
[2021-09-05] MEDS: Magic Mouthwash 10 ML UD Cup PO SCH ×3 (07:28→13:18)
[2021-09-05] MEDS: Sennosides/Docusate Sodium TABLET PO SCH ×2 (08:48→20:46)
[2021-09-05] MEDS: Haloperidol Oral Conc 10 MG/5 ML UDC PO SCH ×3 (08:48→20:45)
[2021-09-05] MEDS: QUEtiapine Fumarate 25 MG TABLET PO SCH ×2 (08:48→20:43)
[2021-09-05] MEDS: Nicotine 14 MG PATCH.TD24 TD SCH (08:49)
[2021-09-05] MEDS: Divalproex Sodium 125 MG Sprinkle Capsule (DR) PO SCH ×2 (08:49→20:43)
[2021-09-05] MEDS: FENTANYL TD SCH (18:10)
[2021-09-05 21:19] VITALS: O2SAT 91
[2021-09-06] MEDS: *HR* OxyCODONE Immed Rel 5 MG TABLET PO PRN ×4 (02:48→16:43)
[2021-09-06] MEDS: dexAMETHasone 4 MG TABLET PO SCH (07:04)
[2021-09-06] MEDS: Magic Mouthwash 10 ML UD Cup PO SCH ×3 (07:04→13:32)
[2021-09-06 08:04] VITALS: BP 112/83; PULSE 94; TEMP 97.5
[2021-09-06] MEDS: Nicotine 14 MG PATCH.TD24 TD SCH (08:44)
[2021-09-06] MEDS: QUEtiapine Fumarate 25 MG TABLET PO SCH (08:44)
[2021-09-06] MEDS: Sennosides/Docusate Sodium TABLET PO SCH (08:44)
[2021-09-06] MEDS: Haloperidol Oral Conc 10 MG/5 ML UDC PO SCH ×2 (08:45→15:26)
[2021-09-06] MEDS: Divalproex Sodium 125 MG Sprinkle Capsule (DR) PO SCH (10:42)
== END 2021-09-06 16:58 | disposition hospice, home (50) | DRG 951 ==
LOC: 2ANU 12:46
PROVIDERS: ADMIT Internal Medicine Hospice and Palliative Medicine; ATTEND Internal Medicine Hospice and Palliative Medicine